=== PATIENT | female | born 1975 | race Caucasian/White ===

== ENCOUNTER 2018-06-11 23:45 | Emergency (ER) | payer SELFPAY ==
[2018-06-12] MEDS ORDERED: RINGERS SOLUTION,LACTATED 1,000 ML IV ONE (02:17)
[2018-06-12 02:54] LABS: APPEARANCE,URINE SLIGHTLY-CLOUDY; BILIRUBIN,URINE NEGATIVE (NEGATIVE); COLOR,URINE YELLOW; GLUCOSE, URINE NEGATIVE (NEGATIVE); KETONES,URINE NEGATIVE (NEGATIVE); LEUKOCYTE ESTERASE,URINE TRACE (NEGATIVE); NITRITE,URINE NEGATIVE (NEGATIVE); PROTEIN,URINE 30 mg/dL (NEGATIVE); URINE SPECIFIC GRAVITY 1.032; UROBILINOGEN,URINE NEGATIVE mg/dL (<2.0)
[2018-06-12] MEDS ORDERED: FENTANYL CITRATE INJ/PF 100 MCG/2 ML AMPUL IV ONE ×3 (03:04→05:19)
--- NOTE | 2018-06-12 03:10 | RADIOLOGY REPORT (SQ) ---
EXAM DESCRIPTION: US TRANSVAGINAL COMPLETED DATE/TME: 06/12/2018 02:18 CLINICAL HISTORY: 42 years, Female, bleeding/pain COMPARISON: None. TECHNIQUE: Transverse and longitudinal transvaginal sonographic images of the pelvis LIMITATIONS: None. FINDINGS: Uterus measures 9.0 x 6.8 x 5.2 cm. Endometrium measures 4 mm in thickness. Myometrium is homogenous. Right ovary not well seen due to bowel gas. Left ovary measures 6.6 x 3.4 x 3.9 cm. Normal flow to left ovary. There is a large left adnexal cyst measuring 6.5 x 2.8 x 3.4 cm. This has peripheral areas of nodularity and internal debris. No solid adnexal mass. No free fluid IMPRESSION: Large complex left adnexal cyst, as above. Please refer to below criteria for follow-up. Recommendations for f/u of ovarian complex cysts (1): Endometrioma: <= 7 cm: US f/u 6-12 wks. If not surgically resected, US f/u annually. >7 cm: Consider MR w/IVC or surgical evaluation. If not surgically resected, US f/u annually. Dermoid: <= 5 cm: MR w/IV contrast. If not surgically resected, US f/u annually. >5 cm: Surgical evaluation. If not surgically resected, MR w/IVC; then US f/u annually Indeterminate cyst - multiple thin <=3 mm septations: Any size in any age: Consider surgical evaluation. Indeterminate cyst - non-hyperechoic nodule w/o blood flow: Any size in any age: Consider MR w/IVC or surgical evaluation. Indeterminate cyst - other, not classic for but suggestive of hemorrhagic cyst, endometrioma or dermoid: Pre-menopause: <= 7 cm: US f/u 6-12 weeks. If unchanged, continue f/u with US or consider MR w/IVC. If these do not confirm endometrioma or dermoid, consider surgical evaluation. >7 cm: Consider MR w/IVC or surgical evaluation. Post-menopause (>=1 year from last menstrual period): Any size: Consider surgical evaluation. Cyst worrisome for malignancy (thick, irregular >=3 mm septations or nodule with blood flow): Any size in any age: Consider surgical evaluation. (1) Recommendations based upon the 2010 SRU Consensus Conference Statement on the Management of Asymptomatic Ovarian and Other Adnexal Cysts Imaged at US: Radiology. 2009;256(3):028-25 copyright 2011 [employer]- All Rights Reserved
[2018-06-12 03:40] LABS: ABSOLUTE EOSINOPHILS # (AUTO) 0.4 10^3/uL (0.0-0.6); ABSOLUTE LYMPHOCYTES (AUTO) 1.9 10^3/uL (0.5-4.7); ABSOLUTE MONOCYTES (AUTO) 0.4 10^3/uL (0.1-1.4); ABSOLUTE NEUT (AUTO) 3.5 10^3/uL (1.7-8.2); BASOPHILS % (AUTO) 0.5 % (0-2); EOSINOPHILS % (AUTO) 5.7 % (0-6); HEMATOCRIT 31.8 % (36.0-47.0); HEMOGLOBIN 10.4 g/dL (12.0-15.5); LYMPHOCYTES % (AUTO) 31.1 % (13-45); MEAN CORPUSCULAR HEMOGLOBIN 23.7 pg (27.0-33.4); MEAN CORPUSCULAR HGB CONC 32.7 g/dL (32.0-36.0); MEAN CORPUSCULAR VOLUME 73 fl (80-97); MONOCYTES % (AUTO) 7.2 % (3-13); PLATELET COUNT 213 10^3/uL (150-450); RED BLOOD COUNT 4.38 10^6/uL (3.72-5.28); RED CELL DISTRIBUTION WIDTH 17.4 % (11.5-14.0); SEGMENTED NEUTROPHILS % (AUTO) 55.5 % (42-78); TOTAL CELLS COUNTED % (AUTO) 100 %; WHITE BLOOD COUNT 6.2 10^3/uL (4.0-10.5)
[2018-06-12 03:55] LABS: ALANINE AMINOTRANSFERASE 25 U/L (9-52); ALBUMIN 4.2 g/dL (3.5-5.0); ALKALINE PHOSPHATASE 73 U/L (38-126); ANION GAP 11 (5-19); ASPARTATE AMINO TRANSFERASE 18 U/L (14-36); BILIRUBIN,DIRECT 0.1 mg/dL (0.0-0.4); BILIRUBIN,TOTAL 0.2 mg/dL (0.2-1.3); BLOOD UREA NITROGEN 20 mg/dL (7-20); CALCIUM 9.3 mg/dL (8.4-10.2); CARBON DIOXIDE 22 mmol/L (22-30); CHLORIDE 109 mmol/L (98-107); GLUCOSE 97 mg/dL (75-110); POTASSIUM 4.2 mmol/L (3.6-5.0); SODIUM 141.7 mmol/L (137-145); TOTAL PROTEIN 7.4 g/dL (6.3-8.2)
--- NOTE | 2018-06-12 06:13 | ER Document Report ---
ED General - General Chief Complaint: Vaginal Bleeding Stated Complaint: VAGINAL BLEEDING Time Seen by Provider: 06/12/18 02:17 Primary Care Provider: [facility] [Provider Group] - Follow up as needed [facility] [NO LOCAL MD] - Follow up as needed Notes: Patient is a 42-year-old female presents to the emergency department for generalized lower back pain and left lower abdominal cramping. Patient states she did start with her regular menstrual cycle 2 days ago but notes today she has been "passing large clots." Patient is denying any other vaginal discharge to include malodor or different colors. Patient states she believes she has been using one tampon per hour since 11 AM. Patient states she does know she has an extensive history of ovarian cysts with surgery for removal of an ovarian cyst. Patient states she is does have a history of hypothyroidism but has been without her Synthroid for the last 4 months. Patient is denying any fever, chest pain, shortness of breath. Patient did admit to some generalized lightheadedness upon arrival to the emergency room but states she feels better now. Past medical history: Ovarian cyst, hypothyroidism Medications: Currently none Allergies: No known medical allergies TRAVEL OUTSIDE OF THE [place] IN LAST 30 DAYS: No - Related Data Allergies/Adverse Reactions: No Known Allergies Allergy (Unverified 06/11/18 23:55) Past Medical History - General Information source: Patient - Social History Smoking Status: Never Smoker Chew tobacco use (# tins/day): No Frequency of alcohol use: None Drug Abuse: None Family History: Reviewed & Not Pertinent Patient has suicidal ideation: No Patient has homicidal ideation: No Renal/ Medical History: Denies: Hx Peritoneal Dialysis Review of Systems - Review of Systems Constitutional: No symptoms reported EENT: No symptoms reported Cardiovascular: No symptoms reported Respiratory: No symptoms reported Gastrointestinal: See HPI Genitourinary: See HPI Female Genitourinary: See HPI Musculoskeletal: See HPI Skin: No symptoms reported Hematologic/Lymphatic: See HPI Neurological/Psychological: No symptoms reported Physical Exam - Vital signs Vitals: Temp Pulse Resp BP Pulse Ox 98.1 F 82 16 142/98 H 100 06/11/18 23:54 06/11/18 23:54 06/11/18 23:54 06/11/18 23:54 06/11/18 23:54 - Notes Notes: GENERAL: Alert, interacts well. No acute distress. HEAD: Normocephalic, atraumatic. EYES: Pupils equal, round, and reactive to light. Extraocular movements intact. ENT: Oral mucosa moist, tongue midline. NECK: Full range of motion. Supple. Trachea midline. LUNGS: Clear to auscultation bilaterally, no wheezes, rales, or rhonchi. No respiratory distress. HEART: Regular rate and rhythm. No murmur ABDOMEN: Soft, generalized intermittent left lower pelvic pain, more so on deep palpation. Non-distended. Bowel sounds present in all 4 quadrants. EXTREMITIES: Moves all 4 extremities spontaneously. No edema, normal radial and dorsalis pedis pulses bilaterally. No cyanosis. BACK: no cervical, thoracic, lumbar midline tenderness. No saddle anesthesia, normal distal neurovascular exam. No CVA tenderness noted bilaterally NEUROLOGICAL: Alert and oriented x3. Normal speech. cranial nerves II through XII grossly intact PSYCH: Normal affect, normal mood. SKIN: Warm, dry, normal turgor. No rashes or lesions noted. Course - Re-evaluation Re-evalutation: In discussing patient's labs with her at bedside she states she does have a history of iron deficiency anemia. Patient states she is unsure of last time she had blood work done states she has not taken iron pills for many years. Discussed with patient at length her current labs, hemoglobin hematocrit 10.4, 31.9 respectively. With an MCV of 73. Discussed use of iron pills. Patient states she does not have insurance so states she will buy [id number] iron pills. Also discussed close return precautions should she get lightheaded, dizzy, weak, have continued heavy vaginal bleeding that she should immediately return to the emergency room. Patient voices understanding. Patient is non-tachycardic, non- hypotensive, upon pelvic exam office does appear closed, only a scant amount of blood noted in the pelvic cul-de-sac. Also discussed patient's high risk of ovarian torsion due to the size of her cyst. Reviewed with the patient multiple times need for follow-up with [employer] [employer], health department and close return precautions. - Vital Signs Vital signs: Temp Pulse Resp BP Pulse Ox 98 F 81 20 118/78 97 06/12/18 06:26 06/12/18 06:26 06/12/18 06:26 06/12/18 06:26 06/12/18 06:26 - Laboratory Result Diagrams: 06/12/18 03:22 06/12/18 03:22 Laboratory results interpreted by me: 06/12/18 06/12/18 06/12/18 02:36 03:22 03:22 Hgb 10.4 L Hct 31.8 L MCV 73 L MCH 23.7 L RDW 17.4 H Chloride 109 H Urine Protein 30 H Urine Blood LARGE H Ur Leukocyte Esterase TRACE H Discharge - Discharge Clinical Impression: Vaginal bleeding Ovarian cyst Qualifiers: Laterality: left Qualified Code(s): N83.202 - Unspecified ovarian cyst, left side Condition: Stable Disposition: HOME, SELF-CARE Instructions: Ovarian Cyst ([facility]), Vaginal Bleeding ([facility]) Additional Instructions: As we discussed you have been seen and treated in the emergency department for a left ovarian cyst and your vaginal bleeding. At this point time all of your v itals are stable. As we discussed if you continue to have heavy vaginal bleeding, lightheadedness, dizziness, weakness, shortness of breath he should immediately return to the emergency room as you are blood levels may have dropped. Please also make sure you follow-up with the [facility] for continued [employer] care of the cyst on your left ovary. Should you have consistent pain in your left groin that is at all worrisome should immediately return to the emergency room. Please also return to the emergency room should you have any other concerning symptoms. Prescriptions: Hydrocodone/Acetaminophen [[place] 5-325 mg Tablet] 1 - 2 tab PO Q6 PRN #15 tablet PRN Reason: Forms: Return to Work Referrals: [facility] [NO LOCAL MD] - Follow up as needed [facility] [Provider Group] - Follow up as needed
[2018-06-12] MEDS ORDERED: HYDROCODONE/ACETAMINOPHEN 5-325 MG (6 TAB/ER DISP) PO PRN (06:16)
[2018-06-12 06:26] VITALS: BP 118/78
== END 2018-06-12 06:27 | disposition home or self-care (01) ==
LOC: ER 23:45
DX: N93.8 Other specified abnormal uterine and vaginal bleeding (principal); N83.202 Unspecified ovarian cyst, left side
CPT/HCPCS: 99284; 36415; 85025; 81025; 80053; 81001; 76830; 93976; J3010; J7120

== ENCOUNTER 2018-06-19 20:52 | Emergency (ER) | payer SELFPAY ==
[2018-06-19] MEDS ORDERED: KETOROLAC TROMETHAMINE INJ/PF 30 MG/1 ML SDV IV ONE (21:35)
--- NOTE | 2018-06-19 21:35 | ER Document Report ---
ED Medical Screen (RME) - General Chief Complaint: Pelvic Pain Stated Complaint: OVARIAN CYST PAIN Time Seen by Provider: 06/19/18 21:33 Notes: Patient is a 42-year-old female who presents emergency department with a chief complaint of left lower pelvic pain. She was seen here in the emergency department a week ago and was diagnosed with a large left ovarian cyst. Her pain is an aching cramping pain. She is very tearful. She was unable to follow-up with [facility] this week. She states that the pain has gotten worse and her bleeding has decreased to spotting. She is at the end of her last menstrual cycle. TRAVEL OUTSIDE OF THE [place] IN LAST 30 DAYS: No - Related Data Allergies/Adverse Reactions: No Known Allergies Allergy (Unverified 06/11/18 23:55) Past Medical History - Social History Frequency of alcohol use: Rare Drug Abuse: None Renal/ Medical History: Denies: Hx Peritoneal Dialysis Past Surgical History: Reports: Hx Kidney (Renal Surgery) Physical Exam - Vital signs Vitals: Temp Pulse Resp BP Pulse Ox 98.1 F 105 H 20 113/91 H 100 06/19/18 20:58 06/19/18 20:58 06/19/18 20:58 06/19/18 20:58 06/19/18 20:58 - Abdominal Tenderness: Tender Course - Vital Signs Vital signs: Temp Pulse Resp BP Pulse Ox 98.1 F 105 H 20 113/91 H 100 06/19/18 20:58 06/19/18 20:58 06/19/18 20:58 06/19/18 20:58 06/19/18 20:58
[2018-06-19 21:50] LABS: ABSOLUTE BASOPHILS # (AUTO) 0.1 10^3/uL (0.0-0.2); ABSOLUTE EOSINOPHILS # (AUTO) 0.5 10^3/uL (0.0-0.6); ABSOLUTE LYMPHOCYTES (AUTO) 2.6 10^3/uL (0.5-4.7); ABSOLUTE MONOCYTES (AUTO) 0.5 10^3/uL (0.1-1.4); ABSOLUTE NEUT (AUTO) 3.9 10^3/uL (1.7-8.2); BASOPHILS % (AUTO) 0.7 % (0-2); EOSINOPHILS % (AUTO) 6.4 % (0-6); HEMATOCRIT 33.2 % (36.0-47.0); HEMOGLOBIN 10.8 g/dL (12.0-15.5); LYMPHOCYTES % (AUTO) 33.9 % (13-45); MEAN CORPUSCULAR HEMOGLOBIN 23.5 pg (27.0-33.4); MEAN CORPUSCULAR HGB CONC 32.6 g/dL (32.0-36.0); MEAN CORPUSCULAR VOLUME 72 fl (80-97); PLATELET COUNT 241 10^3/uL (150-450); RED CELL DISTRIBUTION WIDTH 17.2 % (11.5-14.0); TOTAL CELLS COUNTED % (AUTO) 100 %; WHITE BLOOD COUNT 7.6 10^3/uL (4.0-10.5)
[2018-06-19 22:11] LABS: ALANINE AMINOTRANSFERASE 28 U/L (9-52); ALBUMIN 4.6 g/dL (3.5-5.0); ALKALINE PHOSPHATASE 79 U/L (38-126); ANION GAP 9 (5-19); ASPARTATE AMINO TRANSFERASE 18 U/L (14-36); BILIRUBIN,DIRECT 0.1 mg/dL (0.0-0.4); BILIRUBIN,TOTAL 0.2 mg/dL (0.2-1.3); BLOOD UREA NITROGEN 16 mg/dL (7-20); CALCIUM 9.4 mg/dL (8.4-10.2); CARBON DIOXIDE 22 mmol/L (22-30); CHLORIDE 107 mmol/L (98-107); GLUCOSE 91 mg/dL (75-110); POTASSIUM 4.4 mmol/L (3.6-5.0); TOTAL PROTEIN 8.1 g/dL (6.3-8.2)
[2018-06-19] MEDS ORDERED: MORPHINE SULFATE 10 MG/ML INJ IV ONE (22:46)
--- NOTE | 2018-06-19 23:17 | RADIOLOGY REPORT (SQ) ---
EXAM DESCRIPTION: US TRANSVAGINAL COMPLETED DATE/TME: 06/19/2018 21:34 CLINICAL HISTORY: 42 years, Female, Left sided pelvic pain COMPARISON: None. TECHNIQUE: LIMITATIONS: None. FINDINGS: There is a 6.5 x 3.6 x 3 cm complex cystic lesion in the left adnexa. This lesion contains internal echoes. There is an additional simple appearing cyst in the left ovary, measuring 2.4 cm. There are a couple of uterine fibroids, measuring 2.6 and 0.9 cm respectively. The right ovary was not visualized. There is a nabothian cyst in the cervix. IMPRESSION: Complex cystic lesion in the left adnexa as described. Diagnostic possibilities include endometrioma and hemorrhagic cyst. Recommend pelvic US follow-up in 6-12 weeks; if unchanged, continue follow-up with US OR MRI with IV contrast - if follow-up studies do not confirm endometrioma or dermoid, consider surgical evaluation. Reference: Radiology 2010 Sep;256(3):943-54 Small uterine fibroids. copyright 2010 [employer]- All Rights Reserved
[2018-06-20 02:57] LABS: APPEARANCE,URINE TURBID; BILIRUBIN,URINE NEGATIVE (NEGATIVE); COLOR,URINE YELLOW; GLUCOSE, URINE NEGATIVE (NEGATIVE); KETONES,URINE NEGATIVE (NEGATIVE); LEUKOCYTE ESTERASE,URINE NEGATIVE (NEGATIVE); NITRITE,URINE NEGATIVE (NEGATIVE); PROTEIN,URINE 30 mg/dL (NEGATIVE); URINE SPECIFIC GRAVITY 1.039
[2018-06-20] MEDS ORDERED: MORPHINE SULFATE 10 MG/ML INJ IV ONE (03:44)
[2018-06-20] MEDS ORDERED: HYDROCODONE/ACETAMINOPHEN 5-325 MG (6 TAB/ER DISP) PO PRN (03:45)
--- NOTE | 2018-06-20 03:49 | ER Document Report ---
ED General - General Chief Complaint: Pelvic Pain Stated Complaint: OVARIAN CYST PAIN Time Seen by Provider: 06/19/18 21:33 TRAVEL OUTSIDE OF THE [place] IN LAST 30 DAYS: No - HPI Notes: Patient presents the emergency department for evaluation of left pelvic pain. She was actually seen last week and diagnosed with a complex ovarian cyst. She has been unable to set up an appointment with [facility]. She is had no vaginal discharge. She is currently menstruation, it is lightening at this time. She denies any fevers or chills. No nausea or vomiting. She states the pain is worsened by standing. - Related Data Allergies/Adverse Reactions: No Known Allergies Allergy (Unverified 06/11/18 23:55) Past Medical History - General Information source: Patient - Social History Smoking Status: Never Smoker Frequency of alcohol use: Rare Drug Abuse: None Family History: Reviewed & Not Pertinent Patient has suicidal ideation: No Patient has homicidal ideation: No Renal/ Medical History: Denies: Hx Peritoneal Dialysis Past Surgical History: Reports: Hx Kidney (Renal Surgery) Review of Systems - Review of Systems Constitutional: No symptoms reported EENT: No symptoms reported Cardiovascular: No symptoms reported Respiratory: No symptoms reported Gastrointestinal: No symptoms reported Genitourinary: No symptoms reported Female Genitourinary: See HPI Skin: No symptoms reported Physical Exam - Vital signs Vitals: Temp Pulse Resp BP Pulse Ox 98.1 F 105 H 20 113/91 H 100 06/19/18 20:58 06/19/18 20:58 06/19/18 20:58 06/19/18 20:58 06/19/18 20:58 - Notes Notes: Vital signs reviewed, please refer to chart. Patient is normocephalic, atraumatic. Pupils equal round, reactive to light. Neck is supple without meningismus. Heart is regular rate and rhythm. Lungs are clear to auscultation bilaterally. Abdomen is soft. Tenderness to palpation of the left pelvis without rebound or guarding. Extremities without cyanosis, clubbing, edema. Peripheral pulses are equal. Skin is warm and dry. Patient is awake, alert, neurological exam is nonfocal. Course - Re-evaluation Re-evalutation: 06/20/18 03:47 Presents to the emergency department for evaluation. Laboratory investigations, imaging, medicines as ordered by triage. Laboratory investigations did reveal a mild anemia. Transvaginal ultrasound revealed a significantly large and complex left ovarian cyst. Given the size this will require follow-up by [facility]. There is some potential for malignancy. I explained the importance of this follow-up to the patient. She was medicated here. We will send her home with prescription strength anti-inflammatories. She is to return to the ED with worsening or new concerning symptoms of any sort. - Vital Signs Vital signs: Temp Pulse Resp BP Pulse Ox 97.2 F 83 16 133/93 H 100 06/20/18 02:21 06/20/18 02:21 06/20/18 02:21 06/20/18 02:21 06/20/18 02:21 - Laboratory Result Diagrams: 06/19/18 21:32 06/19/18 21:32 Laboratory results interpreted by me: 06/19/18 06/20/18 21:32 01:05 Hgb 10.8 L Hct 33.2 L MCV 72 L MCH 23.5 L RDW 17.2 H Eosinophils % 6.4 H Urine Protein 30 H Urine Urobilinogen 2.0 H Urine Ascorbic Acid 20 H Discharge - Discharge Clinical Impression: Complex cyst of left ovary Disposition: HOME, SELF-CARE Instructions: [facility], Pelvic Pain ([facility]), Ovarian Cyst ([facility]) Additional Instructions: A cyst of this size will require serial ultrasounds for further evaluation. F ollow-up with gynecology. Take medications as prescribed. Return to the emergency department with worsening or new concerning symptoms of any sort.
[2018-06-20 04:19] VITALS: BP 124/88
== END 2018-06-20 04:21 | disposition home or self-care (01) ==
LOC: ER 20:52
DX: N83.202 Unspecified ovarian cyst, left side (principal); R10.2 Pelvic and perineal pain
CPT/HCPCS: 96376; 99284; 96374; 96375; 36415; 85025; 81025; 80053; 81001; 76830; 93976; J1885; J2270 ×2

== ENCOUNTER 2018-07-05 09:14 | Inpatient (IN) | payer SELFPAY ==
[2018-07-05] MEDS ORDERED: ONDANSETRON HCL INJ/PF 4 MG/2 ML SDV IV ONE (10:27)
[2018-07-05] MEDS ORDERED: NORMAL SALINE 1000 ML 1,000 ML IV ONE (10:27)
[2018-07-05] MEDS ORDERED: FENTANYL CITRATE INJ/PF 100 MCG/2 ML AMPUL IV ONE (10:27)
[2018-07-05 10:37] LABS: ABSOLUTE EOSINOPHILS # (AUTO) 0.3 10^3/uL (0.0-0.6); ABSOLUTE LYMPHOCYTES (AUTO) 1.4 10^3/uL (0.5-4.7); ABSOLUTE MONOCYTES (AUTO) 0.3 10^3/uL (0.1-1.4); ABSOLUTE NEUT (AUTO) 2.4 10^3/uL (1.7-8.2); BASOPHILS % (AUTO) 0.6 % (0-2); EOSINOPHILS % (AUTO) 6.4 % (0-6); HEMATOCRIT 35.2 % (36.0-47.0); HEMOGLOBIN 11.6 g/dL (12.0-15.5); LYMPHOCYTES % (AUTO) 31.1 % (13-45); MEAN CORPUSCULAR HEMOGLOBIN 23.8 pg (27.0-33.4); MEAN CORPUSCULAR VOLUME 72 fl (80-97); MONOCYTES % (AUTO) 7.4 % (3-13); PLATELET COUNT 219 10^3/uL (150-450); RED BLOOD COUNT 4.89 10^6/uL (3.72-5.28); SEGMENTED NEUTROPHILS % (AUTO) 54.5 % (42-78); TOTAL CELLS COUNTED % (AUTO) 100 %; WHITE BLOOD COUNT 4.4 10^3/uL (4.0-10.5)
[2018-07-05 10:48] LABS: ALANINE AMINOTRANSFERASE 22 U/L (9-52); ALBUMIN 4.6 g/dL (3.5-5.0); ALKALINE PHOSPHATASE 92 U/L (38-126); ANION GAP 11 (5-19); ASPARTATE AMINO TRANSFERASE 23 U/L (14-36); BILIRUBIN,DIRECT 0.2 mg/dL (0.0-0.4); BILIRUBIN,TOTAL 0.4 mg/dL (0.2-1.3); BLOOD UREA NITROGEN 15 mg/dL (7-20); CALCIUM 9.4 mg/dL (8.4-10.2); CARBON DIOXIDE 25 mmol/L (22-30); CHLORIDE 105 mmol/L (98-107); POTASSIUM 3.7 mmol/L (3.6-5.0); SODIUM 141.1 mmol/L (137-145)
[2018-07-05 10:51] LABS: GLUCOSE 62 mg/dL (75-110)
[2018-07-05] MEDS ORDERED: DEXTROSE 5%-NORMAL SALINE 1,000 ML IV ONE (10:53)
--- NOTE | 2018-07-05 10:54 | ER Document Report ---
ED GI/ - General Chief Complaint: Abdominal Pain Stated Complaint: ABDOMINAL PAIN Time Seen by Provider: 07/05/18 09:49 Mode of Arrival: Ambulatory Information source: Patient Notes: Patient presents complaining of pain for the past month to left side of abdomen. Patient states she has an ovarian cyst and that the pain became worse today. Patient states that her menstrual cycle started yesterday and she feels that the pain worsened because of this. Patient does complain of nausea. Patient denies any urinary symptoms. Patient denies any fever or problems with bowel movements. TRAVEL OUTSIDE OF THE [place] IN LAST 30 DAYS: No - HPI Patient complains to provider of: Pelvic pain. No: Flank pain, Vomiting Onset: Yesterday Timing/Duration: Worse Quality of pain: Sharp Pain Level: 5 Location: LLQ Vaginal bleeding (Compared to normal period): Similar Menstrual period history: denies: Sexual history: Inactive Associated symptoms: Nausea. denies: Dysuria, Fever, Urinary hesitancy, Urinary frequency, Urinary retention, Vomiting Exacerbated by: Movement Relieved by: Denies Similar symptoms previously: Yes Recently seen / treated by doctor: Yes - Related Data Allergies/Adverse Reactions: No Known Allergies Allergy (Unverified 06/11/18 23:55) Past Medical History - General Information source: Patient - Social History Smoking Status: Never Smoker Chew tobacco use (# tins/day): No Frequency of alcohol use: Occasional Drug Abuse: None Occupation: [employer] Lives with: Family Family History: Reviewed & Not Pertinent Patient has suicidal ideation: No Patient has homicidal ideation: No Renal/ Medical History: Reports: Hx Ovarian Cysts. Denies: Hx Peritoneal Dialysis Past Surgical History: Reports: Hx Gynecologic Surgery - Ovarian cyst removed, Hx Kidney (Renal Surgery) Review of Systems - Review of Systems Constitutional: No symptoms reported. denies: Fever EENT: No symptoms reported Cardiovascular: No symptoms reported. denies: Chest pain Respiratory: No symptoms reported. denies: Cough, Short of breath Gastrointestinal: Abdominal pain, Nausea. denies: Vomiting Genitourinary: No symptoms reported. denies: Dysuria Female Genitourinary: Vaginal bleeding. denies: , Vaginal discharge Musculoskeletal: No symptoms reported. denies: Back pain Skin: No symptoms reported Hematologic/Lymphatic: No symptoms reported Neurological/Psychological: No symptoms reported Physical Exam - Vital signs Vitals: Temp Pulse Resp BP Pulse Ox 98.1 F 87 18 141/84 H 100 07/05/18 09:28 07/05/18 09:28 07/05/18 09:28 07/05/18 09:28 07/05/18 09:28 - General General appearance: Appears well, Alert In distress: None - HEENT Head: Normocephalic, Atraumatic Eyes: Normal Nasal: Normal Mouth/Lips: Normal Mucous membranes: Normal Pharynx: Normal Neck: Normal, Supple. No: Lymphadenopathy - Respiratory Respiratory status: No respiratory distress Chest status: Nontender Breath sounds: Normal. No: Rales, Rhonchi, Stridor, Wheezing Chest palpation: Normal - Cardiovascular Rhythm: Regular Heart sounds: S1 appreciated, S2 appreciated Murmur: No - Abdominal Inspection: Normal Distension: No distension Bowel sounds: Normal Tenderness: Tender - Tenderness to left lower quadrant with guarding, Guarding Organomegaly: No organomegaly - Genitourinary Notes: Patient deferred - Back Back: Tender - Left lower lumbar paraspinal tenderness. No: CVA tenderness - Extremities General upper extremity: Normal inspection, Nontender, Normal ROM General lower extremity: Normal inspection, Nontender, Normal ROM - Neurological Neuro grossly intact: Yes Cognition: Normal Alena Coma Scale Eye Opening: Spontaneous Alena Coma Scale Verbal: Oriented Alena Coma Scale Motor: Obeys Commands [place] Coma Scale Total: 15 - Psychological Associated symptoms: Normal affect, Normal mood - Skin Skin Temperature: Warm Skin Moisture: Dry Skin Color: Normal Course - Re-evaluation Re-evalutation: 07/05/18 12:[address] Becker regarding patient presentation and diagnostic evalua tion. Discussed results of patient's ultrasound. Dr. Becker recommends outpatient follow-up in the office for further management. 07/05/18 13:12 Patient does have some hematuria although this is likely attributed to her menstrual cycle. Patient offered pelvic examination, deferred at this time. Patient states she has not been sexually active for some time and has no concerns about any STI. Patient mildly hypoglycemic. Patient states she has not had anything to eat or drink today. Patient has been tolerating oral fluids without emesis and states that she is feeling much better. Discussed plan of care with patient. Patient advised that she can follow-up with [facility] as per Dr. Becker's instructions to discuss further management of her ovarian cyst. principal planner Armen Davis has been into speak with patient and give her additional outpatient resource information. 07/05/18 14:00 Patient states that [facility] an [facility] and that the office staff told her that Dr. Becker is ironer machine and that he is in the hospital and that he could come down and evaluate her in the ER. Patient advised that a call will be placed again to Dr. Becker advised him of this conversation. Spoke with Dr. Becker again who does agree to come and evaluate patient as he is coming to see the patient in the ER as well. 07/05/18 14:45 Dr. Becker was called into an emergency , RN to update patient. 07/05/18 17:00 Dr. Becker plans to admit patient and plan for surgery this weekend. Patient is agreeable with this plan of care at this time. - Vital Signs Vital signs: Temp Pulse Resp BP Pulse Ox 97.6 F 77 18 117/76 98 07/05/18 13:45 07/05/18 13:45 07/05/18 09:28 07/05/18 13:45 07/05/18 13:48 - Laboratory Result Diagrams: 07/05/18 10:00 07/05/18 10:00 Laboratory results interpreted by me: 07/05/18 07/05/18 07/05/18 09:50 10:00 10:00 Hgb 11.6 L Hct 35.2 L MCV 72 L MCH 23.8 L RDW 17.0 H Eosinophils % 6.4 H Glucose 62 L Total Protein 9.0 H Urine Blood MODERATE H 07/05/18 13:11 Labs- Entire Visit 07/05/18 07/05/18 07/05/18 09:50 10:00 10:00 WBC 4.4 RBC 4.89 Hgb 11.6 L Hct 35.2 L MCV 72 L MCH 23.8 L MCHC 33.0 RDW 17.0 H Plt Count 219 Seg Neutrophils % 54.5 Lymphocytes % 31.1 Monocytes % 7.4 Eosinophils % 6.4 H Basophils % 0.6 Absolute Neutrophils 2.4 Absolute Lymphocytes 1.4 Absolute Monocytes 0.3 Absolute Eosinophils 0.3 Absolute Basophils 0.0 Sodium 141.1 Potassium 3.7 Chloride 105 Carbon Dioxide 25 Anion Gap 11 BUN 15 Creatinine 0.75 Est GFR ( Amer) > 60 Est GFR (Non-Af Amer) > 60 Glucose 62 L Calcium 9.4 Total Bilirubin 0.4 Direct Bilirubin 0.2 Neonat Total Bilirubin Not Reportable Neonat Direct Bilirubin Not Reportable Neonat Indirect Bili Not Reportable AST 23 ALT 22 Alkaline Phosphatase 92 Total Protein 9.0 H Albumin 4.6 Serum HCG, Qual Urine Color YELLOW Urine Appearance CLEAR Urine pH 7.0 Ur Specific [place] 1.021 Urine Protein NEGATIVE Urine Glucose (UA) NEGATIVE Urine Ketones NEGATIVE Urine Blood MODERATE H Urine Nitrite NEGATIVE Urine Bilirubin NEGATIVE Urine Urobilinogen NEGATIVE Ur Leukocyte Esterase NEGATIVE Urine WBC (Auto) 1 Urine RBC (Auto) 66 U Hyaline Cast (Auto) 1 Squamous Epi Cells Auto 1 Urine Mucus (Auto) RARE Urine Ascorbic Acid NEGATIVE 07/05/18 10:00 WBC RBC Hgb Hct MCV MCH MCHC RDW Plt Count Seg Neutrophils % Lymphocytes % Monocytes % Eosinophils % Basophils % Absolute Neutrophils Absolute Lymphocytes Absolute Monocytes Absolute Eosinophils Absolute Basophils Sodium Potassium Chloride Carbon Dioxide Anion Gap BUN Creatinine Est GFR ( Amer) Est GFR (Non-Af Amer) Glucose Calcium Total Bilirubin Direct Bilirubin Neonat Total Bilirubin Neonat Direct Bilirubin Neonat Indirect Bili AST ALT Alkaline Phosphatase Total Protein Albumin Serum HCG, Qual NEGATIVE Urine Color Urine Appearance Urine pH Ur Specific [place] Urine Protein Urine Glucose (UA) Urine Ketones Urine Blood Urine Nitrite Urine Bilirubin Urine Urobilinogen Ur Leukocyte Esterase Urine WBC (Auto) Urine RBC (Auto) U Hyaline Cast (Auto) Squamous Epi Cells Auto Urine Mucus (Auto) Urine Ascorbic Acid - Diagnostic Test Radiology reviewed: Reports reviewed - Reviewed patient's previous ER visit Discharge - Discharge Clinical Impression: Ovarian cyst Qualifiers: Laterality: left Qualified Code(s): N83.202 - Unspecified ovarian cyst, left side Abdominal pain Qualifiers: Abdominal location: left lower quadrant Qualified Code(s): R10.32 - Left lower quadrant pain Condition: Stable Disposition: ADMITTED OBSERVATION Admitting Provider: [facility] Admitted: Post
[2018-07-05 11:34] LABS: APPEARANCE,URINE CLEAR; BILIRUBIN,URINE NEGATIVE (NEGATIVE); COLOR,URINE YELLOW; GLUCOSE, URINE NEGATIVE (NEGATIVE); KETONES,URINE NEGATIVE (NEGATIVE); LEUKOCYTE ESTERASE,URINE NEGATIVE (NEGATIVE); NITRITE,URINE NEGATIVE (NEGATIVE); PROTEIN,URINE NEGATIVE (NEGATIVE); URINE SPECIFIC GRAVITY 1.021; UROBILINOGEN,URINE NEGATIVE mg/dL (<2.0)
--- NOTE | 2018-07-05 11:38 | RADIOLOGY REPORT (SQ) ---
EXAM DESCRIPTION: U/S NON OB PEL TV W/DOPPLER COMPLETED DATE/TIME: 07/05/2018 11:24 am REASON FOR STUDY: LLQ pain COMPARISON: 06/19/2018 TECHNIQUE: Dynamic and static grayscale images acquired of the pelvis via transvaginal approach and recorded on PACS. Additional selected color Doppler and spectral images recorded. LIMITATIONS: None. FINDINGS: UTERUS: Contour normal. No mass. ENDOMETRIAL STRIPE: No focal or generalized thickening. No masses. CERVIX: 3.1 cm. No nabothian cysts. RIGHT OVARY AND DOPPLER: Ovary not seen. LEFT OVARY AND DOPPLER: Ovary enlarged, 6.9 x 6 x 4.1 cm. Doppler flow is present. There is a compl ex predominantly cystic lesion measuring 6.2 x 5.2 x 3.9 cm. FREE FLUID: None noted. OTHER: No other significant finding. MEASUREMENTS: UTERUS: 10.1 x 6.4 x 4.8 cm. ENDOMETRIAL STRIPE: 7 mm. RIGHT OVARY: Ovary not seen. LEFT OVARY: 6.9 x 6 x 4.1 cm. IMPRESSION: Complex left ovarian cyst. Recommend ultrasound follow-up in 6 to 12 weeks. TECHNICAL DOCUMENTATION: JOB ID: [id number] [employer]- All Rights Reserved Rev-08/24 Reading location - IP/workstation name: [email or web address]
[2018-07-05] MEDS ORDERED: MORPHINE SULFATE 10 MG/ML INJ IV ONE ×2 (12:28→15:19)
[2018-07-05] MEDS ORDERED: OXYCODONE-ACETAMINOPHEN 5-325 MG TABLET PO PRN (17:05)
--- NOTE | 2018-07-05 18:07 | PDOC H&P ---
History of Present Illness Admission Date/PCP: 07/05/18 17:29 Patient complains of: Painful ovarian cyst History of Present Illness: REMINGTON TRAN is a 42 year old female She presents now for the third occasion with a complex left ovarian cyst. At previous admission she was instructed to follow-up at OB office. She reports that she is contacted up to 20 offices and has not been seen yet. She now presents to the ER and requests laparoscopy to drain the ovarian cyst. She has a history of a previous ovarian cyst from her home [facility] and it was drained laparoscopically. She is not willing to wait until next week to have it done and wishes to have it done during this hospitalization. She has eaten today and cannot have elective surgery because of this. Past Medical History LMP: Uncertain Gynecological Infection: No Gynecological History Note: She reports a history of previous cysts. She also reports a history of a renal stent. Obstetrical History: none - She is currently not Past Surgical History Past Surgical History: She reports history of an ovarian cyst drainage as well as a renal stent placement. Social History Information Source: Patient Smoking Status: Never Smoker Family History Family History: Reviewed & Not Pertinent Parental Family History Reviewed: Yes - Her mother had breast cancer Children Family History Reviewed: Yes Sibling(s) Family History Reviewed.: Yes Medication/Allergy Home Medications: Hydrocodone/Acetaminophen [[place] 5-325 mg Tablet] 1 - 2 tab PO Q6 PRN #15 tablet 06/12/18 Naproxen [Naprosyn 375 Mg Tablet] 375 mg PO BID #20 tablet 06/20/18 Allergies/Adverse Reactions: No Known Allergies Allergy (Unverified 06/11/18 23:55) Physical Exam - Physical Exam Vital Signs: Temp Pulse Resp BP Pulse Ox 97.6 F 77 18 117/76 98 07/05/18 13:45 07/05/18 13:45 07/05/18 09:28 07/05/18 13:45 07/05/18 13:48 Intake & Output 07/04/18 07/05/18 07/06/18 06:59 06:59 06:59 Intake Total 1593 Balance 1593 Weight 78.2 kg General appearance: PRESENT: no acute distress, well-developed, well-nourished Head exam: PRESENT: atraumatic, normocephalic Respiratory exam: PRESENT: other - Lungs are clear to auscultation Cardiovascular exam: PRESENT: RRR. ABSENT: diastolic murmur, rubs, systolic murmur Pulses: PRESENT: normal dorsalis pedis pul, +2 pedal pulses bilateral GI/Abdominal exam: PRESENT: other - Her abdomen is soft with mild tenderness on the right. There is no guarding or rebound Extremities exam: PRESENT: full ROM. ABSENT: calf tenderness, clubbing, pedal edema Neurological exam: PRESENT: alert, awake, oriented to person, oriented to place, oriented to time, oriented to situation, CN II-XII grossly intact. ABSENT: motor sensory deficit Psychiatric exam: PRESENT: appropriate affect, normal mood. ABSENT: homicidal ideation, suicidal ideation Result Laboratory Results: 07/05/18 10:00 07/05/18 10:00 07/05/18 07/05/18 07/05/18 09:50 10:00 10:00 WBC 4.4 RBC 4.89 Hgb 11.6 L Hct 35.2 L MCV 72 L MCH 23.8 L MCHC 33.0 RDW 17.0 H Plt Count 219 Seg Neutrophils % 54.5 Lymphocytes % 31.1 Monocytes % 7.4 Eosinophils % 6.4 H Basophils % 0.6 Absolute Neutrophils 2.4 Absolute Lymphocytes 1.4 Absolute Monocytes 0.3 Absolute Eosinophils 0.3 Absolute Basophils 0.0 Sodium 141.1 Potassium 3.7 Chloride 105 Carbon Dioxide 25 Anion Gap 11 BUN 15 Creatinine 0.75 Est GFR ( Amer) > 60 Est GFR (Non-Af Amer) > 60 Glucose 62 L Calcium 9.4 Total Bilirubin 0.4 AST 23 ALT 22 Alkaline Phosphatase 92 Total Protein 9.0 H Albumin 4.6 Serum HCG, Qual Urine Color YELLOW Urine Appearance CLEAR Urine pH 7.0 Ur Specific [place] 1.021 Urine Protein NEGATIVE Urine Glucose (UA) NEGATIVE Urine Ketones NEGATIVE Urine Blood MODERATE H Urine Nitrite NEGATIVE Ur Leukocyte Esterase NEGATIVE Urine WBC (Auto) 1 Urine RBC (Auto) 66 07/05/18 10:00 WBC RBC Hgb Hct MCV MCH MCHC RDW Plt Count Seg Neutrophils % Lymphocytes % Monocytes % Eosinophils % Basophils % Absolute Neutrophils Absolute Lymphocytes Absolute Monocytes Absolute Eosinophils Absolute Basophils Sodium Potassium Chloride Carbon Dioxide Anion Gap BUN Creatinine Est GFR ( Amer) Est GFR (Non-Af Amer) Glucose Calcium Total Bilirubin AST ALT Alkaline Phosphatase Total Protein Albumin Serum HCG, Qual NEGATIVE Urine Color Urine Appearance Urine pH Ur Specific [place] Urine Protein Urine Glucose (UA) Urine Ketones Urine Blood Urine Nitrite Ur Leukocyte Esterase Urine WBC (Auto) Urine RBC (Auto) Impressions: Transvaginal US 07/05/18 10:27 IMPRESSION: Complex left ovarian cyst. Recommend ultrasound follow-up in 6 to 12 weeks. Assessment & Plan - Diagnosis (1) Abdominal pain Qualifiers: Abdominal location: left lower quadrant Qualified Code(s): R10.32 - Left lower quadrant pain Is this a current diagnosis for this admission?: Yes (2) Ovarian cyst Qualifiers: Laterality: left Qualified Code(s): N83.202 - Unspecified ovarian cyst, left side Is this a current diagnosis for this admission?: Yes Plan: Patient is unwilling to go home and requests surgery today. She is eaten today and would not be eligible for an elective procedure. I have offered her laparoscopy next Sunday and she is unhappy with this. She would prefer to be admitted during this weekend and undergo the surgery as an add-on case. 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 after midnight Sunday night for surgery on Sunday as an add-on.
[2018-07-06] MEDS: OXYCODONE-ACETAMINOPHEN 5-325 MG TABLET PO PRN ×4 (08:43→20:45)
--- NOTE | 2018-07-06 09:06 | PDOC PROGRESS REPORT ---
Subjective Progress Note for:: 07/06/18 Subjective:: Continued LLQ pain unchanged from admission. Percocet helps. No n/v. Reason For Visit: PELVIC PAIN,OVARIAN CYST Physical Exam - Physical Exam Vital Signs: Temp Pulse Resp BP Pulse Ox 97.9 F 82 16 109/75 100 07/06/18 08:18 07/06/18 08:18 07/06/18 08:18 07/06/18 08:18 07/06/18 08:18 Intake & Output 07/05/18 07/06/18 07/07/18 06:59 06:59 06:59 Intake Total 1833 Balance 1833 Weight 79.1 kg General appearance: PRESENT: no acute distress, cooperative Head exam: PRESENT: atraumatic, normocephalic Respiratory exam: PRESENT: clear to auscultation leda Cardiovascular exam: PRESENT: RRR GI/Abdominal exam: PRESENT: normal bowel sounds, soft, tenderness - mild, LLQ with palpation Result Laboratory Results: 07/05/18 10:00 07/05/18 10:00 07/05/18 07/05/18 07/05/18 09:50 10:00 10:00 WBC 4.4 RBC 4.89 Hgb 11.6 L Hct 35.2 L MCV 72 L MCH 23.8 L MCHC 33.0 RDW 17.0 H Plt Count 219 Seg Neutrophils % 54.5 Lymphocytes % 31.1 Monocytes % 7.4 Eosinophils % 6.4 H Basophils % 0.6 Absolute Neutrophils 2.4 Absolute Lymphocytes 1.4 Absolute Monocytes 0.3 Absolute Eosinophils 0.3 Absolute Basophils 0.0 Sodium 141.1 Potassium 3.7 Chloride 105 Carbon Dioxide 25 Anion Gap 11 BUN 15 Creatinine 0.75 Est GFR ( Amer) > 60 Est GFR (Non-Af Amer) > 60 Glucose 62 L Calcium 9.4 Total Bilirubin 0.4 AST 23 ALT 22 Alkaline Phosphatase 92 Total Protein 9.0 H Albumin 4.6 Serum HCG, Qual Urine Color YELLOW Urine Appearance CLEAR Urine pH 7.0 Ur Specific [place] 1.021 Urine Protein NEGATIVE Urine Glucose (UA) NEGATIVE Urine Ketones NEGATIVE Urine Blood MODERATE H Urine Nitrite NEGATIVE Ur Leukocyte Esterase NEGATIVE Urine WBC (Auto) 1 Urine RBC (Auto) 66 07/05/18 10:00 WBC RBC Hgb Hct MCV MCH MCHC RDW Plt Count Seg Neutrophils % Lymphocytes % Monocytes % Eosinophils % Basophils % Absolute Neutrophils Absolute Lymphocytes Absolute Monocytes Absolute Eosinophils Absolute Basophils Sodium Potassium Chloride Carbon Dioxide Anion Gap BUN Creatinine Est GFR ( Amer) Est GFR (Non-Af Amer) Glucose Calcium Total Bilirubin AST ALT Alkaline Phosphatase Total Protein Albumin Serum HCG, Qual NEGATIVE Urine Color Urine Appearance Urine pH Ur Specific [place] Urine Protein Urine Glucose (UA) Urine Ketones Urine Blood Urine Nitrite Ur Leukocyte Esterase Urine WBC (Auto) Urine RBC (Auto) Impressions: Transvaginal US 07/05/18 10:27 IMPRESSION: Complex left ovarian cyst. Recommend ultrasound follow-up in 6 to 12 weeks. Assessment & Plan - Diagnosis (1) Ovarian cyst Qualifiers: Laterality: left Qualified Code(s): N83.202 - Unspecified ovarian cyst, left side Is this a current diagnosis for this admission?: Yes Plan: Continue analgesics prn. Monitor pain. Surgical evaluation planned for tomorrow.
[2018-07-06] MEDS ORDERED: ZOLPIDEM TARTRATE 5 MG TABLET PO ONE (22:00)
[2018-07-07] MEDS: OXYCODONE-ACETAMINOPHEN 5-325 MG TABLET PO PRN ×3 (10:05→23:42)
--- NOTE | 2018-07-07 10:39 | PDOC PROGRESS REPORT ---
Subjective Progress Note for:: 07/07/18 Subjective:: Painful ovarian cyst. Her pain is not controlled on percocet. Reason For Visit: PELVIC PAIN,OVARIAN CYST Physical Exam - Physical Exam Vital Signs: Temp Pulse Resp BP Pulse Ox 98.0 F 82 16 116/59 L 100 07/07/18 07:12 07/07/18 07:12 07/07/18 07:12 07/07/18 07:12 07/07/18 07:12 Intake & Output 07/06/18 07/07/18 07/08/18 06:59 06:59 06:59 Intake Total 1833 574 Output Total 3 Balance 1833 571 Weight 79.1 kg General appearance: PRESENT: no acute distress, well-developed, well-nourished GI/Abdominal exam: PRESENT: other - mild abdominal pain. Result Laboratory Results: 07/05/18 10:00 07/05/18 10:00 Impressions: Transvaginal US 07/05/18 10:27 IMPRESSION: Complex left ovarian cyst. Recommend ultrasound follow-up in 6 to 12 weeks. We are unable to do the case today. I discussed the case with Dr Rice and he is willing to do it tomorrow. We will keep her until tomorrow. Assessment & Plan - Diagnosis (1) Abdominal pain Qualifiers: Abdominal location: left lower quadrant Qualified Code(s): R10.32 - Left lower quadrant pain Is this a current diagnosis for this admission?: Yes (2) Ovarian cyst Qualifiers: Laterality: left Qualified Code(s): N83.202 - Unspecified ovarian cyst, left side Is this a current diagnosis for this admission?: Yes - Time Time Spent with patient: 15-24 minutes - Plan Summary Plan Summary: Plan surgery tomorrow.
[2018-07-07] MEDS ORDERED: ZOLPIDEM TARTRATE 5 MG TABLET PO ONE (21:30)
[2018-07-08] MEDS: OXYCODONE-ACETAMINOPHEN 5-325 MG TABLET PO PRN (06:41)
[2018-07-08] MEDS ORDERED: KETOROLAC TROMETHAMINE 60 MG/2 ML SDV ONE (11:25)
[2018-07-08] MEDS ORDERED: SUCCINYLCHOLINE CHLORIDE INJ 200 MG/10 ML VIAL ONE (11:25)
[2018-07-08] MEDS ORDERED: ROCURONIUM BROMIDE INJ 50 MG/5 ML VIAL IV ONE (11:25)
[2018-07-08] MEDS ORDERED: ONDANSETRON HCL INJ/PF 4 MG/2 ML SDV ONE (11:25)
[2018-07-08] MEDS ORDERED: DEXAMETHASONE SOD PHOSPHATE INJ 4 MG/1 ML VIAL ONE (11:25)
[2018-07-08] MEDS ORDERED: FENTANYL CITRATE INJ/PF 100 MCG/2 ML AMPUL ONE (11:42)
[2018-07-08] MEDS ORDERED: MIDAZOLAM 2 MG/2 ML INJ ONE (11:42)
[2018-07-08] MEDS ORDERED: PROPOFOL INJ 200 MG/20 ML VIAL IV ONE (11:42)
[2018-07-08] MEDS ORDERED: ACETAMINOPHEN 1,000 MG/100 ML RTUPB IV ONE (11:43)
[2018-07-08] MEDS ORDERED: BUPIVACAINE HCL 0.25 % INJ/PF (2.5 MG/1 ML) 30 ML VIAL ONE (13:21)
[2018-07-08] MEDS ORDERED: HYDROMORPHONE HCL INJ/PF 2 MG/ML AMPULE ONE (13:22)
[2018-07-08] MEDS ORDERED: MEPERIDINE HCL/PF INJ 25 MG/1 ML DISP.SYRIN IV PRN (14:16)
[2018-07-08] MEDS ORDERED: MORPHINE SULFATE 10 MG/ML INJ IV PRN (14:16)
[2018-07-08] MEDS ORDERED: FENTANYL CITRATE INJ/PF 100 MCG/2 ML AMPUL IV PRN ×3 (14:16)
[2018-07-08] MEDS ORDERED: PROMETHAZINE HCL INJ 25 MG/1 ML VIAL IV PRN (14:16)
[2018-07-08] MEDS ORDERED: DIPHENHYDRAMINE HCL 50 MG/ML VIAL IV PRN (14:16)
--- NOTE | 2018-07-08 14:37 | PDOC DISCHARGE SUMMARY ---
General - Admit/Disc Date/PCP Admission Date/Primary Care Provider: 07/05/18 17:29 Discharge Date: 07/08/18 - Discharge Diagnosis (1) Ovarian cyst Is this a current diagnosis for this admission?: Yes - Additional Information Resuscitation Status: Full Code Home Medications: Levothyroxine Sodium [Synthroid 0.15 mg Tablet] 0.15 mg PO Q6AM 07/05/18 History of Present Illness History of Present Illness: REMINGTON TRAN is a 42 year old female Hospital Course Hospital Course: pt admitted with lower abdominal pain and diagnosed with left ovarian cyst Pt underwent a diagnostic laproascopy and aspiration of left simple cysr Physical Exam - Physical Exam Vital Signs: Temp Pulse Resp BP Pulse Ox 97.9 F 77 16 109/65 100 07/08/18 11:14 07/08/18 11:14 07/08/18 11:14 07/08/18 11:14 07/08/18 11:14 Intake & Output 07/07/18 07/08/18 07/09/18 06:59 06:59 06:59 Intake Total 574 Output Total 3 Balance 571 Weight 79.5 kg General appearance: PRESENT: no acute distress GI/Abdominal exam: PRESENT: soft Result Laboratory Results: 07/05/18 10:00 07/05/18 10:00 Impressions: Transvaginal US 07/05/18 10:27 IMPRESSION: Complex left ovarian cyst. Recommend ultrasound follow-up in 6 to 12 weeks. Plan Discharge Plan: d/c and f/u 1 week
[2018-07-08] MEDS ORDERED: DEXTROSE 5%-LACTATED RINGERS 1,000 ML IV PRN (14:48)
--- NOTE | 2018-07-08 15:39 | OPERATIVE REPORT E ---
Operative Report NAME: REMINGTON TRAN : 1975 AGE: 42Y DATE OF SURGERY: 07/08/2018 ROOM: 228 PREOPERATIVE DIAGNOSIS: LEFT ADNEXAL CYST. POSTOPERATIVE DIAGNOSIS: LEFT ADNEXAL CYST. OPERATION: DIAGNOSTIC LAPAROSCOPY WITH ASPIRATION OF CYST. ESTIMATED BLOOD LOSS: Less than 10 mL. SURGEON: Kaelyn COLÓN M.D. ANESTHESIA: General. TISSUE REMOVED OR ALTERED: None. PROCEDURE: The patient was placed in a dorsal lithotomy position, prepped and draped in sterile fashion. A speculum was placed and a single tooth tenaculum. A Hulka tenaculum was placed and the single tooth tenaculum was removed. Bladder was drained with the catheter. Attention was turned to the abdomen, where a subumbilical incision was made. Trocar was introduced with visualization of the tube, uterus, and ovary on the right. There was a small 1 cm corpus luteal cyst on the right ovary and on the left there was a 2 to 3 cm cyst. This was punctured and clear straw-colored fluid was obtained. The puncture wound was then cauterized using Kleppinger. The other areas of the pelvis had no overt pathology present. The laparoscope was removed and the abdomen deflated. *------* removed. Incision closed with 0 Vicryl in the fascia and 4-0 for subcu skin. The patient tolerated the procedure well and was taken to recovery in good condition. DICTATING PHYSICIAN: Kaelyn COLÓN M.D. [id number] Y#: [id number] ID: [id number] JOB#: [id number] ACCT: [id number] cc:Kaelyn COLÓN M.D. >
[2018-07-08] MEDS ORDERED: OXYCODONE-ACETAMINOPHEN 5-325 MG TABLET PO PRN ×2 (16:00)
[2018-07-08 17:40] VITALS: BP 121/83
[2018-07-08] MEDS ORDERED: IBUPROFEN 800 MG TABLET PO SCH (22:00)
== END 2018-07-08 18:15 | disposition home or self-care (01) | DRG 743 ==
LOC: ER 09:14 → EH 17:29 → OBSVTOIN 17:29 → 2S 21:25
PROVIDERS: ADMIT Obstetrics & Gynecology; ATTEND Obstetrics & Gynecology
PROC: 0U914ZX Drainage of Left Ovary, Percutaneous Endoscopic Approach, Diagnostic (ICD-10-PCS; principal; 2018-07-08 13:00)
DX: N83.202 Unspecified ovarian cyst, left side (principal); R10.9 Unspecified abdominal pain
CPT/HCPCS: 36415; 76830; 80053; 81001; 82962; 840; 84703; 85025; 87070; 87075; 87205; 93976; 96361; 96374; 96375; 96376; 99285; J0131; J0330; J1100; J1170; J1885; J2250; J2270; J2405; J2704; J3010; J3490; J7030

== ENCOUNTER 2018-12-03 13:04 | Observation (INO) | payer MEDICAID ==
[~2018-12-03 13:04] MED LIST: ROCURONIUM BROMIDE INJ 50 MG/5 ML VIAL IV ONE; SUCCINYLCHOLINE CHLORIDE INJ 200 MG/10 ML VIAL ONE
[2018-12-03] MEDS ORDERED: MORPHINE SULFATE 10 MG/ML INJ IV ONE ×2 (13:20→14:31)
[2018-12-03] MEDS ORDERED: NORMAL SALINE 1000 ML 1,000 ML IV ONE (13:21)
[2018-12-03] MEDS ORDERED: ONDANSETRON HCL INJ/PF 4 MG/2 ML SDV IV ONE (13:21)
--- NOTE | 2018-12-03 13:25 | ER Document Report ---
ED Medical Screen (RME) - General Chief Complaint: Flank Pain Stated Complaint: LEFT FLANK PAIN Time Seen by Provider: 12/03/18 13:14 Mode of Arrival: Medic Information source: Patient Notes: This 43-year-old female presents emergency department with complaints of left- sided flank pain that started this morning when she woke up. She complains of urinary urgency frequency but only voiding a few drops. Has history of ureteral obstructions. Also has history of kidney stones & ovarian cysts. Patient is in extreme pain crying holding her side vomiting. I have greeted and performed a rapid initial assessment of this patient. A comprehensive ED assessment and evaluation of the patient, analysis of test results and completion of the medical decision making process will be conducted by additional ED providers. Dictation of this chart was performed using voice recognition software; therefore, there may be some unintended grammatical errors. TRAVEL OUTSIDE OF THE [place] IN LAST 30 DAYS: No - Related Data Allergies/Adverse Reactions: No Known Allergies Allergy (Verified 12/03/18 13:05) Past Medical History Renal/ Medical History: Reports: Hx Ovarian Cysts. Denies: Hx Peritoneal Dialysis Past Surgical History: Reports: Hx Gynecologic Surgery - Ovarian cyst removed, Hx Kidney (Renal Surgery) Physical Exam - Vital signs Vitals: Temp Pulse Resp BP Pulse Ox 97.6 F 77 18 139/71 H 100 12/03/18 13:08 12/03/18 13:08 12/03/18 13:08 12/03/18 13:08 12/03/18 13:08 Course - Vital Signs Vital signs: Temp Pulse Resp BP Pulse Ox 97.6 F 77 18 139/71 H 100 12/03/18 13:08 12/03/18 13:08 12/03/18 13:08 12/03/18 13:08 12/03/18 13:08
[2018-12-03 13:50] LABS: ABSOLUTE EOSINOPHILS # (AUTO) 0.1 10^3/uL (0.0-0.6); ABSOLUTE LYMPHOCYTES (AUTO) 1.3 10^3/uL (0.5-4.7); ABSOLUTE MONOCYTES (AUTO) 0.5 10^3/uL (0.1-1.4); ABSOLUTE NEUT (AUTO) 5.4 10^3/uL (1.7-8.2); BASOPHILS % (AUTO) 0.6 % (0-2); EOSINOPHILS % (AUTO) 1.2 % (0-6); HEMATOCRIT 33.7 % (36.0-47.0); MEAN CORPUSCULAR HEMOGLOBIN 22.6 pg (27.0-33.4); MEAN CORPUSCULAR HGB CONC 32.5 g/dL (32.0-36.0); MEAN CORPUSCULAR VOLUME 70 fl (80-97); MONOCYTES % (AUTO) 7.1 % (3-13); PLATELET COUNT 218 10^3/uL (150-450); RED BLOOD COUNT 4.84 10^6/uL (3.72-5.28); RED CELL DISTRIBUTION WIDTH 17.1 % (11.5-14.0); SEGMENTED NEUTROPHILS % (AUTO) 73.1 % (42-78); TOTAL CELLS COUNTED % (AUTO) 100 %; WHITE BLOOD COUNT 7.4 10^3/uL (4.0-10.5)
[2018-12-03 14:13] LABS: ALBUMIN 4.2 g/dL (3.5-5.0); ALKALINE PHOSPHATASE 83 U/L (38-126); ANION GAP 10 (5-19); ASPARTATE AMINO TRANSFERASE 19 U/L (14-36); BILIRUBIN,DIRECT 0.1 mg/dL (0.0-0.4); BILIRUBIN,TOTAL 0.2 mg/dL (0.2-1.3); BLOOD UREA NITROGEN 15 mg/dL (7-20); CALCIUM 8.8 mg/dL (8.4-10.2); CARBON DIOXIDE 20 mmol/L (22-30); CHLORIDE 108 mmol/L (98-107); GLUCOSE 106 mg/dL (75-110); POTASSIUM 4.3 mmol/L (3.6-5.0); TOTAL PROTEIN 7.5 g/dL (6.3-8.2)
[2018-12-03 14:20] LABS: APPEARANCE,URINE CLEAR; BILIRUBIN,URINE NEGATIVE (NEGATIVE); COLOR,URINE YELLOW; GLUCOSE, URINE NEGATIVE (NEGATIVE); KETONES,URINE NEGATIVE (NEGATIVE); LEUKOCYTE ESTERASE,URINE NEGATIVE (NEGATIVE); NITRITE,URINE NEGATIVE (NEGATIVE); PROTEIN,URINE 30 mg/dL (NEGATIVE); URINE SPECIFIC GRAVITY 1.021; UROBILINOGEN,URINE NEGATIVE mg/dL (<2.0)
[2018-12-03] MEDS ORDERED: KETOROLAC TROMETHAMINE INJ/PF 30 MG/1 ML SDV IV ONE (15:02)
--- NOTE | 2018-12-03 15:43 | RADIOLOGY REPORT (SQ) ---
EXAM DESCRIPTION: CT ABD/PELVIS NO ORAL OR IV COMPLETED DATE/TIME: 12/03/2018 3:31 pm REASON FOR STUDY: left flank COMPARISON: Pelvic ultrasound, 07/05/2018 TECHNIQUE: CT scan of the abdomen and pelvis performed without intravenous or oral contrast. Images reviewed with lung, soft tissue, and bone windows. Reconstructed coronal and sagittal MPR images revi ewed. All images stored on PACS. All CT scanners at this facility use dose modulation, iterative reconstruction, and/or weight based d osing when appropriate to reduce radiation dose to as low as reasonably achievable (ALARA). [facility]: Dose Right [facility]: CareDose [facility]: Dose Right [facility]: Teradose 4D [facility]: [employer] RADIATION DOSE: 364 mGy cm LIMITATIONS: None. FINDINGS: LOWER CHEST: No significant findings. No nodules or infiltrates. NON-CONTRASTED LIVER, SPLEEN, ADRENALS: Evaluation limited by lack of IV contrast. No identified sign ificant masses. PANCREAS: No masses. No peripancreatic inflammatory changes. GALLBLADDER: No identified stones by CT criteria. No inflammatory changes to suggest cholecystitis. RIGHT KIDNEY AND URETER: No suspicious masses. Assessment limited by lack of IV contrast. No signif icant calcifications. No hydronephrosis or hydroureter. LEFT KIDNEY AND URETER: No suspicious masses. Assessment limited by lack of IV contrast. No signifi cant calcifications. No hydronephrosis or hydroureter. AORTA AND RETROPERITONEUM: No aneurysm. No retroperitoneal masses or adenopathy. BOWEL AND PERITONEAL CAVITY: No obvious masses or inflammatory changes. No free fluid. APPENDIX: Normal. PELVIS, BLADDER, AND ABDOMINAL WALL:There is a large, complex appearing solid and cystic mass of the posterior left pelvis, likely left adnexal in origin, measuring at least 6.9 x 6.4 cm (series 2, imag e 76). The right ovary is mildly enlarged measuring 4.4 by 2.5 cm. There is a small volume of nonsp ecific free fluid in the low pelvis. BONES: No significant findings. OTHER: No other significant finding. IMPRESSION: 1. There is a large, complex appearing solid and cystic mass of the posterior left pelvi s, likely left adnexal in origin, measuring at least 6.9 x 6.4 cm (series 2, image 76). This is in k eeping with finding of complex lesion identified on prior ultrasound examination dated 07/05/2018. Re commend initial dedicated pelvic ultrasound to further evaluate. Torsion is a concern in any enlarge d ovary in the setting of acutely referable pain. 2. The right ovary is mildly enlarged measuring 4.4 by 2.5 cm. 3. There is a small volume of nonspecific free fluid in the low pelvis. COMMENT: Quality ID # [id number]: Final reports with documentation of one or more dose reduction techniques (e.g., Automated exposure control, adjustment of the mA and/or kV according to patient size, use of iterative reconstruction technique) TECHNICAL DOCUMENTATION: JOB ID: [id number] [employer]- All Rights Reserved Reading location - IP/workstation name: [email or web address]
[2018-12-03] MEDS ORDERED: HYDROMORPHONE HCL INJ/PF 2 MG/ML AMPULE IV ONE (15:54)
--- NOTE | 2018-12-03 16:50 | ER Document Report ---
ED General - General Chief Complaint: Flank Pain Stated Complaint: LEFT FLANK PAIN Time Seen by Provider: 12/03/18 13:14 Mode of Arrival: Medic Information source: Patient TRAVEL OUTSIDE OF THE [place] IN LAST 30 DAYS: No - HPI Notes: Patient patient presents with severe left lower quadrant and left flank pain. States it started this morning and is gotten worse throughout the day. She states she cannot find a comfortable position. Nothing makes it better or worse. It is sharp. It does radiate from the back to the front. No vaginal discharge or bleeding. She has no history of kidney stones. She has been nauseous and had vomiting. She has been sweating. No recent trauma. No fevers. No dysuria. - Related Data Allergies/Adverse Reactions: No Known Allergies Allergy (Verified 12/03/18 13:05) Past Medical History - General Information source: Patient - Social History Smoking Status: Never Smoker Frequency of alcohol use: None Drug Abuse: None Family History: Reviewed & Not Pertinent Patient has suicidal ideation: No Patient has homicidal ideation: No Renal/ Medical History: Reports: Hx Ovarian Cysts. Denies: Hx Peritoneal Dialysis Past Surgical History: Reports: Hx Gynecologic Surgery - Ovarian cyst removed, Hx Kidney (Renal Surgery) Review of Systems - Review of Systems Constitutional: denies: Chills, Fever Cardiovascular: denies: Chest pain, Dyspnea Respiratory: denies: Cough, Short of breath Gastrointestinal: Abdominal pain, Vomiting -: Yes All other systems reviewed and negative Physical Exam - Vital signs Vitals: Temp Pulse Resp BP Pulse Ox 97.6 F 77 18 139/71 H 100 12/03/18 13:08 12/03/18 13:08 12/03/18 13:08 12/03/18 13:08 12/03/18 13:08 Interpretation: Normal - General General appearance: Alert, Anxious, Other - Appears in pain - HEENT Head: Normocephalic, Atraumatic Eyes: Normal Pupils: PERRL - Respiratory Respiratory status: No respiratory distress Chest status: Nontender Breath sounds: Normal Chest palpation: Normal - Cardiovascular Rhythm: Regular Heart sounds: Normal auscultation Murmur: No - Abdominal Inspection: Normal Distension: No distension Bowel sounds: Hypoactive Tenderness: Tender - Patient has tenderness palpation of the left lower quadrant. She does have some voluntary guarding. Organomegaly: No organomegaly - Back Back: Normal, Nontender - Extremities General upper extremity: Normal inspection, Nontender, Normal color, Normal ROM, Normal temperature General lower extremity: Normal inspection, Nontender, Normal color, Normal ROM, Normal temperature, Normal weight bearing. No: Catrachita's sign - Neurological Neuro grossly intact: Yes Cognition: Normal Orientation: AAOx4 [place] Coma Scale Eye Opening: Spontaneous [place] Coma Scale Verbal: Oriented [place] Coma Scale Motor: Obeys Commands [place] Coma Scale Total: 15 Speech: Normal Motor strength normal: LUE, RUE, LLE, RLE Sensory: Normal - Psychological Associated symptoms: Anxious, Tearful - Skin Skin Temperature: Warm Skin Moisture: Dry Skin Color: Normal Course - Vital Signs Vital signs: Temp Pulse Resp BP Pulse Ox 97.6 F 77 18 139/71 H 100 12/03/18 13:08 12/03/18 13:08 12/03/18 13:08 12/03/18 13:08 12/03/18 13:08 - Laboratory Result Diagrams: 12/03/18 13:30 12/03/18 13:30 Laboratory results interpreted by me: 12/03/18 12/03/18 12/03/18 13:30 13:30 14:05 Hgb 11.0 L Hct 33.7 L MCV 70 L MCH 22.6 L RDW 17.1 H Chloride 108 H Carbon Dioxide 20 L Urine Protein 30 H - Diagnostic Test Radiology reviewed: Image reviewed, Reports reviewed Radiology results interpreted by me: 12/03/18 16:49 I discussed the radiology results with the radiologist. He states that he feels he is unable to assess arterial flow to the left ovary. He feels it is concerning for possible torsion. I merely contacted Dr. Suero from [facility]. She is currently in the emergency department seeing the patient. Discharge - Discharge Clinical Impression: Torsion of left ovary and ovarian pedicle Condition: Stable Disposition: SAME DAY SURGERY Admitting Provider: [facility] Unit Admitted: OR
--- NOTE | 2018-12-03 16:55 | RADIOLOGY REPORT (SQ) ---
EXAM DESCRIPTION: U/S NON OB PEL TV W/DOPPLER COMPLETED DATE/TIME: 12/03/2018 4:34 pm REASON FOR STUDY: severe pain/rule out torsion COMPARISON: 12/03/2018, ultrasound 07/05/2018, multiple priors TECHNIQUE: Dynamic and static grayscale images acquired of the pelvis via transvaginal approach and recorded on PACS. Additional selected color Doppler and spectral images recorded. LIMITATIONS: Limited exam secondary to patient discomfort. FINDINGS: UTERUS: Unremarkable measuring 10.6 x 6.8 x 5.9 cm. ENDOMETRIAL STRIPE: No focal or generalized thickening. No masses. CERVIX: 2.2 cm. Nabothian cyst noted. RIGHT OVARY AND DOPPLER: Nonvisualized. LEFT OVARY AND DOPPLER: Again seen is a complex cystic lesion within the left adnexum measuring 7.2 x 8.3 x 6.4 cm. There is a component of low internal echoes which was not previously seen on prior ex am, possibly hemorrhagic cyst. There is no significant arterial Doppler flow visualized. Venous wav eforms were appreciated. FREE FLUID: Mild free fluid within the left adnexum. OTHER: No other significant finding. IMPRESSION: 1. Enlarged complex cystic lesion within the left ovary measuring approximately 7.2 x 8 .3 x 6.4 cm without visualized arterial flow and with small volume free fluid within the left adnexum . Findings concerning for ovarian torsion given enlarged ovary, free fluid and pain. Recommend gyne cology consultation for further evaluation. Findings discussed with Dr. Lomeli at 1645 hours on 12/03/2018 TECHNICAL DOCUMENTATION: JOB ID: [id number]- All Rights Reserved Reading location - IP/workstation name: [email or web address]
[2018-12-03] MEDS ORDERED: BUPIVACAINE HCL 0.25 % INJ/PF (2.5 MG/1 ML) 30 ML VIAL ONE (17:34)
[2018-12-03] MEDS ORDERED: BUPIVACAINE HCL 0.5 % INJ/PF 30 ML SDV ONE (17:34)
[2018-12-03] MEDS ORDERED: METHYLENE BLUE 50 MG/10 ML AMPULE ONE (17:34)
[2018-12-03] MEDS ORDERED: IBUPROFEN 800 MG TABLET PO PRN (17:35)
[2018-12-03] MEDS ORDERED: RINGERS SOLUTION,LACTATED 1,000 ML IV PRN (17:35)
[2018-12-03] MEDS ORDERED: KETOROLAC TROMETHAMINE INJ/PF 30 MG/1 ML SDV IV PRN (17:35)
[2018-12-03] MEDS ORDERED: OXYCODONE-ACETAMINOPHEN 5-325 MG TABLET PO PRN (17:35)
[2018-12-03] MEDS ORDERED: ONDANSETRON HCL INJ/PF 4 MG/2 ML SDV ONE (17:38)
[2018-12-03] MEDS ORDERED: FENTANYL CITRATE INJ/PF 100 MCG/2 ML AMPUL ONE (17:38)
[2018-12-03] MEDS ORDERED: DEXAMETHASONE SOD PHOSPHATE INJ 4 MG/1 ML VIAL ONE (17:38)
[2018-12-03] MEDS ORDERED: MIDAZOLAM 2 MG/2 ML INJ ONE (17:38)
[2018-12-03] MEDS ORDERED: PROPOFOL INJ 200 MG/20 ML VIAL IV ONE (17:38)
[2018-12-03] MEDS ORDERED: SUGAMMADEX SODIUM 200 MG/2 ML SDV IV ONE (17:38)
--- NOTE | 2018-12-03 17:40 | Brief Operative Note ---
BRIEF OPERATIVE REPORT DATE OF SURGERY: 12/03/18 TIME OF SURGERY: 17:40 PREOPERATIVE DIAGNOSIS: Left Ovarian Torsion, Pelvic Pain, Complex left ovarian cyst POSTOPERATIVE DIAGNOSIS: NORMAN SURGEON: CHANCE GONCALVES FINDINGS: Normal uterus, normal right fallopian tube and right ovary with corpus luteum, left fallopian tube and left ovary (enlarged to approximately 6-7cm) necrotic and torsed 4 times. Tube untorsed and no return of flow. IVF 1200ml, UOP 50ml COMPLICATIONS: None ESTIMATED BLOOD LOSS: 5ml TISSUE REMOVED OR ALTERED: left ovary and fallopian tube TECHNICAL PROCEDURE: Operative Laparoscopy with Left salpingo-ophorectomy
[2018-12-03] MEDS ORDERED: DIPHENHYDRAMINE HCL 50 MG/ML VIAL IV PRN (18:38)
[2018-12-03] MEDS ORDERED: MEPERIDINE HCL/PF INJ 25 MG/1 ML DISP.SYRIN IV PRN (18:38)
[2018-12-03] MEDS ORDERED: MORPHINE SULFATE 10 MG/ML INJ IV PRN (18:38)
[2018-12-03] MEDS ORDERED: FENTANYL CITRATE INJ/PF 100 MCG/2 ML AMPUL IV PRN ×3 (18:38)
[2018-12-03] MEDS ORDERED: ONDANSETRON HCL INJ/PF 4 MG/2 ML SDV IV PRN (18:38)
[2018-12-03] MEDS ORDERED: PROMETHAZINE HCL INJ 25 MG/1 ML VIAL IV PRN ×2 (18:38)
[2018-12-03 20:23] LABS: CHLAM PCR NOT DETECTED (NOT DETECT)
--- NOTE | 2018-12-03 20:52 | Operative Report ---
Operative Report DATE OF SURGERY: 12/03/18 PREOPERATIVE DIAGNOSIS: Left Ovarian Torsion, Pelvic Pain, Complex left ovarian cyst POSTOPERATIVE DIAGNOSIS: NORMAN OPERATION: Operative Laparoscopy with Left salpingo-ophorectomy SURGEON: CHANCE GONCALVES ANESTHESIA: GA TISSUE REMOVED OR ALTERED: left fallopian tube and ovary COMPLICATIONS: None ESTIMATED BLOOD LOSS: 5ml INTRAOPERATIVE FINDINGS: Normal uterus, normal right fallopian tube (appears interrupted consistent with prior tubal ligation) and right ovary with corpus luteum, left fallopian tube and left ovary (enlarged to approximately 6-7cm) necrotic and torsed 4 times. Tube untorsed and no return of flow. IVF 1200ml, UOP 50ml PROCEDURE: Anesthesiologist: Jinny Martinez CRNA, MD IV fluids: [1200ml] Urine output: [50ml] Indications: [43yo presents with left adnexal pain since this am she reports pain before today but today it has become significantly worse. She reports history of BTL in 2016 and then in 06/2018 she had left ovarian cyst that was drained with laparoscopy. Today she was evaluated in the ER and noted to have complex cyst on CT then US done with notation of no flow to left ovary. She was consented for evaluation with laparoscopy due to torsion noted and reviewed risks of need to have Left Salpingo-ophorectomy. She desires the left ovary removed anyway since she has had multiple issues with that in the past. The risks benefits, alternatives were reviewed and she desires to proceed with Operative Laparoscopy and likely left salpingo-ophorectomy.] Procedure: The patient was taken to the operating room where general anesthesia was obtained without difficulty. The patient was then examined under anesthesia with findings as noted above with a small anteverted uterus and possible left adnexal mass. She was then placed in dorsal supine lithotomy position and prepped and draped in the normal sterile fashion. [place] speculum was then placed in the patient's vagina and the anterior lip of the cervix grasped with a single-tooth tenaculum. A Humi uterine manipulator was then advanced into the uterus to provide a means of manipulation of the uterus. The speculum and tenaculum were then removed from the patient's cervix and vagina. Attention was then turned to the patient's abdomen where a 5 mm infraumbilical skin incision was then made. The Optiview trocar with 0 laparoscope was then advanced without difficulty under direct visualization with the Optiview trocar. This was performed while tenting the abdominal wall and these will fashion. Intraperitoneal placement was confirmed by the direct visualization. Pneumoperitoneum was then obtained with approximately 4 L carbon dioxide gas. Survey of the patient's abdomen and pelvis revealed findings as noted above. A second skin incision was then made approximately 3 cm superior 4 cm medial to the anterior superior iliac spine on the left and then a third skin incision was made approximately 3 cm superior to the lower incision. These incisions were made under direct visualization with the laparoscope. The second and third trochars were then advanced under direct visualization of the laparoscope at the sites. The rigth fallopian tube appears not contiguous consistent with prior tubal ligation. The right ovary was noted to be normal and vasculature remained intact to this ovary. Attention was then turned to the left adnexa at which time the left fallopian tube was identified and tube and ovary untorsed (4 turns) and LigaSure device was then used to clamp and cauterize and cut the mesosalpinx extending from the fimbriated end of the left fallopian tube to the uterine cornual thus removing the left fallopian tube in its entirety and left necrotic ovary in it entirety. The 10 mm trocar was changed to 12 in order to use the larger endobag for removal of left tube and ovary and the umbilical inicision was extended to accomodate this. The left fallopian tube and left ovary were then sent to pathology. The fascia at the 12 mm trocar site was closed with 0 Vicryl on a UR 6 needle after abdominal insufflation was evacuated. The skin at all trocar sites were closed with 3-0 Monocryl in a subcuticular fashion with overlying Dermabond. No antibiotics were indicated for this procedure. After completion of skin closure of the trocar sites attention was then turned to the vagina where the Humi uterine manipulator was removed. Sponge lap needle and instrument counts were correct 3. The patient tolerated the procedure well and was taken to the recovery area awake and in stable condition.
[2018-12-03] MEDS: OXYCODONE-ACETAMINOPHEN 5-325 MG TABLET PO PRN (21:02)
[2018-12-03] MEDS ORDERED: ZOLPIDEM TARTRATE 5 MG TABLET PO ONE (22:30)
[2018-12-04] MEDS: OXYCODONE-ACETAMINOPHEN 5-325 MG TABLET PO PRN ×3 (01:40→09:59)
[2018-12-04 08:16] VITALS: BP 111/67
--- NOTE | 2018-12-04 08:56 | PDOC DISCHARGE SUMMARY ---
General - Admit/Disc Date/PCP Admission Date/Primary Care Provider: 12/03/18 17:19 Discharge Date: 12/04/18 - Discharge Diagnosis (1) S/P unilateral salpingo-oophorectomy Is this a current diagnosis for this admission?: Yes (2) Torsion of left ovary and ovarian pedicle Is this a current diagnosis for this admission?: Yes - Additional Information Resuscitation Status: Full Code Discharge Diet: As Tolerated Discharge Activity: Activity As Tolerated, Bedrest, Pelvic Rest Prescriptions: Oxycodone HCl/Acetaminophen [Percocet 5-325 mg Tablet] 1 tab PO Q4HP PRN #30 tablet PRN Reason: Oxycodone HCl/Acetaminophen [Percocet 5-325 mg Tablet] 2 tab PO Q4HP PRN #30 tablet PRN Reason: Home Medications: Levothyroxine Sodium [Synthroid 0.15 mg Tablet] 0.15 mg PO Q6AM 07/05/18 Oxycodone HCl/Acetaminophen [Percocet 5-325 mg Tablet] 1 tab PO Q4HP PRN #30 tablet 12/04/18 Oxycodone HCl/Acetaminophen [Percocet 5-325 mg Tablet] 2 tab PO Q4HP PRN #30 tablet 12/04/18 History of Present Illness History of Present Illness: REMINGTON TRAN is a 43 year old female Hospital Course Hospital Course: patient came in with severe left lower quadrant pain and left ovarian cyst noted to have no flow. Ovarian torsion dx and patient taken to operating room. L/S LSO performed. See op report Physical Exam - Physical Exam Vital Signs: Temp Pulse Resp BP Pulse Ox 98.4 F 75 18 111/67 100 12/04/18 08:13 12/04/18 08:13 12/04/18 08:13 12/04/18 08:13 12/04/18 08:13 Intake & Output 12/03/18 12/04/18 12/05/18 06:59 06:59 06:59 Intake Total 3670 100 Output Total 1480 400 Balance 2190 -300 Weight 79.1 kg General appearance: PRESENT: no acute distress, well-developed, well-nourished Head exam: PRESENT: atraumatic, normocephalic Respiratory exam: PRESENT: clear to auscultation leda, symmetrical, unlabored Cardiovascular exam: PRESENT: RRR. ABSENT: diastolic murmur, rubs, systolic murmur Pulses: PRESENT: normal dorsalis pedis pul, +2 pedal pulses bilateral GI/Abdominal exam: PRESENT: normal bowel sounds, soft. ABSENT: distended, guarding, mass, organolmegaly, rebound, tenderness Rectal exam: PRESENT: deferred Extremities exam: PRESENT: full ROM. ABSENT: calf tenderness, clubbing, pedal edema Neurological exam: PRESENT: alert, awake, oriented to person, oriented to place, oriented to time, oriented to situation, CN II-XII grossly intact. ABSENT: motor sensory deficit Psychiatric exam: PRESENT: appropriate affect, normal mood. ABSENT: homicidal ideation, suicidal ideation Skin exam: PRESENT: dry, intact, warm. ABSENT: cyanosis, rash Result Laboratory Results: 12/03/18 13:30 12/03/18 13:30 12/03/18 12/03/18 12/03/18 13:30 13:30 14:05 WBC 7.4 RBC 4.84 Hgb 11.0 L Hct 33.7 L MCV 70 L MCH 22.6 L MCHC 32.5 RDW 17.1 H Plt Count 218 Seg Neutrophils % 73.1 Sodium 138.4 Potassium 4.3 Chloride 108 H Carbon Dioxide 20 L Anion Gap 10 BUN 15 Creatinine 0.71 Est GFR ( Amer) > 60 Glucose 106 Calcium 8.8 Total Bilirubin 0.2 AST 19 Alkaline Phosphatase 83 Total Protein 7.5 Albumin 4.2 Urine Color YELLOW Urine Appearance CLEAR Urine pH 8.0 Ur Specific [place] 1.021 Urine Protein 30 H Urine Glucose (UA) NEGATIVE Urine Ketones NEGATIVE Urine Blood NEGATIVE Urine Nitrite NEGATIVE Ur Leukocyte Esterase NEGATIVE Urine WBC (Auto) 1 Urine RBC (Auto) 1 Blood Type Antibody Screen 12/03/18 17:48 WBC RBC Hgb Hct MCV MCH MCHC RDW Plt Count Seg Neutrophils % Sodium Potassium Chloride Carbon Dioxide Anion Gap BUN Creatinine Est GFR ( Amer) Glucose Calcium Total Bilirubin AST Alkaline Phosphatase Total Protein Albumin Urine Color Urine Appearance Urine pH Ur Specific [place] Urine Protein Urine Glucose (UA) Urine Ketones Urine Blood Urine Nitrite Ur Leukocyte Esterase Urine WBC (Auto) Urine RBC (Auto) Blood Type A NEGATIVE Antibody Screen NEGATIVE Impressions: Abdomen/Pelvis CT 12/03/18 13:19 IMPRESSION: 1. There is a large, complex appearing solid and cystic mass of the posterior left pelvis, likely left adnexal in origin, measuring at least 6.9 x 6.4 cm (series 2, image 76). This is in keeping with finding of complex lesion identified on prior ultrasound examination dated 07/05/2018. Recommend initial dedicated pelvic ultrasound to further evaluate. Torsion is a concern in any enlarged ovary in the setting of acutely referable pain. 2. The right ovary is mildly enlarged measuring 4.4 by 2.5 cm. 3. There is a small volume of nonspecific free fluid in the low pelvis. Transvaginal US 12/03/18 15:54 IMPRESSION: 1. Enlarged complex cystic lesion within the left ovary measuring approximately 7.2 x 8.3 x 6.4 cm without visualized arterial flow and with small volume free fluid within the left adnexum. Findings concerning for ovarian torsion given enlarged ovary, free fluid and pain. Recommend gynecology consultation for further evaluation. Findings discussed with Dr. Lomeli at 1645 hours on 12/03/2018 Status: Imported from PACS Plan Discharge Plan: Discharge to home Acute Heart Failure - Is this a Heart Failure Patient?: No
== END 2018-12-04 10:15 | disposition home or self-care (01) ==
LOC: ER 13:04 → INTOOBSV 17:19 → EH 17:19 → 2N 20:33
PROVIDERS: ADMIT Student in an Organized Health Care Education/Training Program; ATTEND Student in an Organized Health Care Education/Training Program
PROC: 0UT64ZZ Resection of Left Fallopian Tube, Percutaneous Endoscopic Approach (ICD-10-PCS; 2018-12-03)
PROC: 0UT14ZZ Resection of Left Ovary, Percutaneous Endoscopic Approach (ICD-10-PCS; principal; 2018-12-03 17:25)
DX: N83.512 Torsion of left ovary and ovarian pedicle (principal); D27.1 Benign neoplasm of left ovary; N85.4 Malposition of uterus; R35.0 Frequency of micturition; R39.15 Urgency of urination; Z98.51 Tubal ligation status; Z87.448 Personal history of other diseases of urinary system; Z87.442 Personal history of urinary calculi
CPT/HCPCS: 96376; 99291; 96361; 96374; 96375; 86900; 86901; 36415; 87086; 86850; 85025; 81025; 80053; 81001; 87491; 87591; 88162; 76830; 93976; 74176; 00840; 58661; G0378 ×2; J2250; J3490 ×3; J1100; J3010; J1885; J2270; J1170; J0330; J2405; S0020; J7030; J7120; J2704; 840; Q9968

== ENCOUNTER 2018-12-24 10:44 | Outpatient (CLI) | payer OTHER ==
[~2018-12-24 10:44] MED LIST changes: +FERRIC CARBOXYMALTOSE 750 MG in NORMAL SALINE 250 ML IV PRN; +NORMAL SALINE 250 ML IV PRN; -ROCURONIUM BROMIDE INJ 50 MG/5 ML VIAL IV ONE; -SUCCINYLCHOLINE CHLORIDE INJ 200 MG/10 ML VIAL ONE
[2018-12-24 11:07] VITALS: BP 140/83
== END 2018-12-24 12:15 | disposition home or self-care (01) ==
LOC: II 10:44 → 5TH 10:48 → II 12:15
PROVIDERS: ATTEND Student in an Organized Health Care Education/Training Program
PROC: 3E033GC Introduction of Other Therapeutic Substance into Peripheral Vein, Percutaneous Approach (ICD-10-PCS; principal; 2018-12-24)
DX: O99.019 Anemia complicating pregnancy, unspecified trimester (principal)
CPT/HCPCS: 96365; J7050; J1439

== ENCOUNTER 2018-12-31 07:56 | Outpatient (CLI) | payer SELFPAY ==
[2018-12-31 08:10] VITALS: BP 120/72
== END 2018-12-31 09:45 | disposition home or self-care (01) ==
LOC: II 07:56 → 5TH 07:59 → II 09:45
PROVIDERS: ATTEND Student in an Organized Health Care Education/Training Program
PROC: 3E033GC Introduction of Other Therapeutic Substance into Peripheral Vein, Percutaneous Approach (ICD-10-PCS; principal; 2018-12-31)
DX: O99.019 Anemia complicating pregnancy, unspecified trimester (principal); D64.9 Anemia, unspecified
CPT/HCPCS: 96365; J7050; J1439

== ENCOUNTER 2019-11-25 22:55 | Emergency (ER) | payer OTHER ==
[2019-11-25] MEDS ORDERED: TETRACAINE HCL 0.5% OPH SOLN 0.6 ML DROPERETTE OU ONE (23:50)
[2019-11-25] MEDS ORDERED: TETRACAINE HCL 0.5% OPH SOLN 4 ML ONE (23:52)
--- NOTE | 2019-11-25 23:52 | ER Document Report ---
ED Medical Screen (RME) - General Chief Complaint: Eye Pain Stated Complaint: EYE PAIN Time Seen by Provider: 11/25/19 23:49 Notes: Patient reports bilateral eye pain that started 5 PM this evening after taking her contact lenses out. Patient denies any eye trauma, foreign body or any chemical or cleanser exposure to the eye. Patient complains of blurred vision and eye pain. Patient does wear contact lenses. I have greeted and performed a rapid initial assessment of this patient. A comprehensive ED assessment and evaluation of the patient, analysis of test results and completion of the medical decision making process will be conducted by additional ED providers. TRAVEL OUTSIDE OF THE [place] IN LAST 30 DAYS: No - Related Data Allergies/Adverse Reactions: No Known Allergies Allergy (Verified 12/03/18 13:05) Past Medical History Renal/ Medical History: Reports: Hx Ovarian Cysts. Denies: Hx Peritoneal Dialysis Past Surgical History: Reports: Hx Gynecologic Surgery - Ovarian cyst removed, Hx Kidney (Renal Surgery) Physical Exam - Vital signs Vitals: Temp Pulse Resp BP Pulse Ox 98.0 F 97 20 127/96 H 100 11/25/19 22:59 11/25/19 22:59 11/25/19 22:59 11/25/19 22:59 11/25/19 22:59 - General General appearance: Alert, Anxious Notes: Sclera injected bilaterally, tearing, positive photophobia. Patient anxious and tearful Course - Vital Signs Vital signs: Temp Pulse Resp BP Pulse Ox 98.0 F 97 20 127/96 H 100 11/25/19 22:59 11/25/19 22:59 11/25/19 22:59 11/25/19 22:59 11/25/19 22:59
[2019-11-26] MEDS ORDERED: BUTALB/ACETAMINOPHEN/CAFFEINE 1 TAB EACH PO ONE (00:01)
[2019-11-26] MEDS ORDERED: OXYCODONE-ACETAMINOPHEN 5-325 MG TABLET PO ONE (01:09)
[2019-11-26] MEDS ORDERED: HYDROCODONE/ACETAMINOPHEN 5-325 MG (6 TAB/ER DISP) PO PRN (01:17)
[2019-11-26] MEDS ORDERED: ERYTHROMYCIN 0.5% OPH OINT 1 GM UNIT DOSE OU ONE (01:17)
[2019-11-26] MEDS ORDERED: CIPROFLOXACIN HCL 0.3% OPH OINTMENT 3.5 GM OU ONE (01:18)
--- NOTE | 2019-11-26 01:24 | ER Document Report ---
ED Eye Complaint - General Chief Complaint: Eye Problem Stated Complaint: EYE PAIN Time Seen by Provider: 11/25/19 23:49 Primary Care Provider: TIMMY SIERRA MD [ACTIVE STAFF] - Follow up as needed Notes: CHIEF COMPLAINT: Bilateral eye pain after contact removal HPI: 44-year-old female presenting for evaluation of bilateral eye pain after taking contacts at this afternoon. States that she wears daily contacts and put them in this morning had no problems all day but when she went to take the contacts out immediately after began having burning and pain behind both eyes with redness and tearing. States eyes only feel better when she closes them tightly. ROS: See HPI - all other systems were reviewed and are otherwise negative Constitutional: no fever Eyes: Positive tearing, no blurred vision ENT: no runny nose, no sore throat Integumentary: no rash Allergy: no hives MEDICATIONS: I agree with the patient medications as charted by the RN. ALLERGIES: I agree with the allergies as charted by the RN. PAST MEDICAL HISTORY/PAST SURGICAL HISTORY: Reviewed and agree as charted by RN. SOCIAL HISTORY: Reviewed and agree as charted by RN. FAMILY HISTORY: No significant familial comorbid conditions directly related to patient complaint EXAM: Reviewed vital signs as charted by RN. CONSTITUTIONAL: Alert and oriented and responds appropriately to questions. Well-appearing; well-nourished HEAD: Normocephalic; atraumatic EYES: PERRL; Conjunctivae injected bilaterally, sclerae non-icteric. Patient's contacts are out, no visible corneal abrasion on wood lamp exam with fluorescein stain. No visible swelling of the upper or lower lids. No hyphema. Funduscopic exam does not reveal evidence of disc edema or hemorrhage. Negative Nilda sign. No visible foreign body under the upper or lower lids. ENT: normal nose; no rhinorrhea; moist mucous membranes; pharynx without lesions noted, no uvula edema or deviation, no tonsillar hypertrophy, phonation normal NECK: Supple without meningismus; non-tender; no cervical lymphadenopathy, no masses CARD: Capillary refill less than 3 seconds; symmetric distal pulses RESP: Normal chest excursion without splinting or tachypnea ABD/GI: non-distended BACK: The back appears normal EXT: Normal ROM in all joints; no cyanosis, no effusions, no edema SKIN: Normal color for age and race; warm; dry; good turgor NEURO: Moves all extremities equally; Motor and sensory function intact PSYCH: The patient's mood and manner are appropriate. Grooming and personal hygiene are appropriate. MDM: 44-year-old female with bilateral eye discomfort after removing contacts, no visible corneal abrasion. Will place patient on ciloxan given the contact use. I suspect patient likely had a chemical or other material on the fingers when she removed the contacts because she immediately had burning and pain afterwards. There is no family history of glaucoma. Patient's eye discomfort completely resolves with use of tetracaine. Will irrigate the eyes, discharged to follow-up with ophthalmology TRAVEL OUTSIDE OF THE [place] IN LAST 30 DAYS: No - Related Data Allergies/Adverse Reactions: No Known Allergies Allergy (Verified 12/03/18 13:05) Home Medications: Synthroid Past Medical History - Social History Smoking Status: Never Smoker Frequency of alcohol use: None Drug Abuse: None Family History: Reviewed & Not Pertinent Patient has homicidal ideation: No Renal/ Medical History: Reports: Hx Ovarian Cysts. Denies: Hx Peritoneal Dialysis Past Surgical History: Reports: Hx Gynecologic Surgery - Ovarian cyst removed, Hx Kidney (Renal Surgery) Physical Exam - Vital signs Vitals: Temp Pulse Resp BP Pulse Ox 98.0 F 97 20 127/96 H 100 11/25/19 22:59 11/25/19 22:59 11/25/19 22:59 11/25/19 22:59 11/25/19 22:59 Course - Vital Signs Vital signs: Temp Pulse Resp BP Pulse Ox 98.0 F 97 20 127/96 H 100 11/25/19 22:59 11/25/19 22:59 11/25/19 22:59 11/25/19 22:59 11/25/19 22:59 Discharge - Discharge Clinical Impression: Chemical conjunctivitis of both eyes Condition: Stable Disposition: HOME, SELF-CARE Additional Instructions: Use the antibiotic ointment as prescribed. Pain medications as prescribed, no driving if taking narcotics for pain. Follow-up closely with ophthalmology for further evaluation and treatment call for appointment Prescriptions: Ciprofloxacin HCl [Ciloxan 0.3% Oph Soln 2.5 ml] 2 drop OU Q6H #1 bottle Hydrocodone/Acetaminophen [[place] 5-325 mg Tablet] 1 tab PO Q4 PRN #15 tablet PRN Reason: Referrals: ERGAS,TIMMY, MD [ACTIVE STAFF] - Follow up as needed
[2019-11-26] MEDS ORDERED: CIPROFLOXACIN HCL 0.3% OPH OINTMENT 3.5 GM ONE (01:30)
[2019-11-26 02:34] VITALS: BP 121/79
== END 2019-11-26 02:32 | disposition home or self-care (01) ==
LOC: ER 22:55
DX: T65.91XA Toxic effect of unspecified substance, accidental (unintentional), initial encounter (principal); T26.61XA Corrosion of cornea and conjunctival sac, right eye, initial encounter; T26.62XA Corrosion of cornea and conjunctival sac, left eye, initial encounter; Z79.899 Other long term (current) drug therapy
CPT/HCPCS: 99284; J3490 ×3